=== PATIENT | male | born 1970 | race Caucasian/White ===

== ENCOUNTER 2017-04-21 11:22 | Emergency (ER) | payer OTHER ==
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
[2017-04-21] MEDS ORDERED: METHOCARBAMOL 500 MG TABLET PO STA (12:48)
[2017-04-21] MEDS ORDERED: IBUPROFEN 600 MG TABLET PO STA (12:48)
[2017-04-21] MEDS ORDERED: HYDROcod/ACETAM 5/325 MG TABLET PO STA (12:48)
[2017-04-21] MEDS ORDERED: METHOCARBAMOL 500 MG TABLET PO ONE (13:01)
[2017-04-21] MEDS ORDERED: HYDROcod/ACETAM 5/325 MG TABLET ONE (13:01)
[2017-04-21] MEDS ORDERED: IBUPROFEN 600 MG TABLET PO ONE (13:02)
[2017-04-21 13:04] VITALS: BP 136/94
== END 2017-04-21 13:07 | disposition home or self-care (01) ==
LOC: ED 11:22
DX: S16.1XXA Strain of muscle, fascia and tendon at neck level, initial encounter (principal); V89.2XXA Person injured in unspecified motor-vehicle accident, traffic, initial encounter; Y92.488 Other paved roadways as the place of occurrence of the external cause
CPT/HCPCS: 99283; A9270

== ENCOUNTER 2017-11-04 09:34 | Emergency (ER) | payer SELFPAY ==
[2017-11-04] MEDS ORDERED: OXYMETAZOLINE NASAL SPRAY NAS STA (10:54)
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
[2017-11-04 12:28] VITALS: BP 130/106
== END 2017-11-04 12:31 | disposition home or self-care (01) ==
LOC: ED 09:34
DX: R04.0 Epistaxis (principal); R03.0 Elevated blood-pressure reading, without diagnosis of hypertension; F17.200 Nicotine dependence, unspecified, uncomplicated
CPT/HCPCS: 30901; 99282; 99283; A9270

== ENCOUNTER 2017-12-08 20:58 | Outpatient (CLI) | payer OTHER | END 2017-12-08 20:59 | disposition EMS.NT | LOC: EMS 20:58 | PROVIDERS: ATTEND Surgery | DX: S01.352A Open bite of left ear, initial encounter (principal); S09.93XA Unspecified injury of face, initial encounter; Y04.1XXA Assault by human bite, initial encounter; Y04.2XXA Assault by strike against or bumped into by another person, initial encounter; Y92.008 Other place in unspecified non-institutional (private) residence as the place of occurrence of the external cause ==

== ENCOUNTER 2017-12-08 22:25 | Emergency (ER) | payer OTHER ==
[2017-12-09] MEDS ORDERED: IBUPROFEN 600 MG TABLET PO STA (00:48)
[2017-12-09] MEDS ORDERED: cephALEXin 250 MG CAPSULE PO STA (00:48)
[2017-12-09] MEDS ORDERED: LIDOCAINE MPF 1%-EPI 1:200000 30 ML VIAL SUBQ STA (00:48)
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
[2017-12-09] MEDS ORDERED: HYDROcod/ACET 5/325 Prepack 6 PO STA (01:45)
[2017-12-09] MEDS ORDERED: HYDROcod/ACETAM 5/325 MG TABLET PO STA (01:45)
[2017-12-09] MEDS ORDERED: BACITRACIN OINT TOP STA (02:00)
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
[2017-12-09 03:04] VITALS: BP 131/88
== END 2017-12-09 03:05 | disposition home or self-care (01) ==
LOC: ED 22:25
DX: S01.312A Laceration without foreign body of left ear, initial encounter (principal); S02.31XA Fracture of orbital floor, right side, initial encounter for closed fracture; S02.40CA Maxillary fracture, right side, initial encounter for closed fracture; Y04.0XXA Assault by unarmed brawl or fight, initial encounter; Y92.009 Unspecified place in unspecified non-institutional (private) residence as the place of occurrence of the external cause; F17.200 Nicotine dependence, unspecified, uncomplicated
CPT/HCPCS: 12013; 70486; 99284; A9270